=== PATIENT | male | born 1970 | race Caucasian/White ===

== ENCOUNTER 2017-11-01 02:25 | Emergency (ER) | END 2017-11-01 04:26 | disposition home or self-care (01) ==

== ENCOUNTER 2017-11-03 22:05 | Emergency (ER) | END 2017-11-04 03:12 | disposition left against medical advice (07) ==

== ENCOUNTER 2018-05-04 23:24 | Emergency (ER) | END 2018-05-05 00:12 | disposition left against medical advice (07) ==